=== PATIENT | male | born 1960 | race Caucasian/White ===

== ENCOUNTER 2018-11-20 18:57 | Emergency (ER) | payer MEDICAID, OTHER ==
[~2018-11-20] VITALS: Ht 172.7 cm; Wt 80.7 kg
[2018-11-20 19:09] VITALS: BP_SYST 130
--- NOTE | 2018-11-20 19:16 | NUR ---
Patient to ER bed 06 for evaluation. Side rails up. Report given to Shayan SPEARS.
--- NOTE | 2018-11-20 19:20 | NUR ---
Pt C/O of bleeding from the incision site on RT knee after meniscus surgery today. Pt noticed bleeding an hour ago and was advised to seek medical treatment if bleeding occurs. Pt wrapped site with JAH badage prior to arrival. Pt pain was 7/10 but after taking Percocet he is now pain free. Pt is ambulatory and denies any other symptoms at this time. Will continue to monitor.
--- NOTE | 2018-11-20 19:58 | NUR ---
Shayan Petersen at bedside examining patient.
--- NOTE | 2018-11-20 20:36 | NUR ---
Dr. Petersen at bedside discussing discharge instructions with patient
[2018-11-20 20:59] VITALS: BP_SYST 130
--- NOTE | 2018-11-20 21:00 | NUR ---
Patient given written and verbal discharge instructions and verbalizes understanding. ER MD discussed with patient the results and treatment provided. Patient in stable condition. ID arm band removed. Patient educated on pain management and to follow up with PMD. Pain Scale 0/10. Opportunity for questions provided and answered. Medication side effect fact sheet provided.
== END 2018-11-20 20:59 | disposition home or self-care (01) ==
LOC: SED 18:57
DX: M96.830 Postprocedural hemorrhage of a musculoskeletal structure following a musculoskeletal system procedure (principal); R03.0 Elevated blood-pressure reading, without diagnosis of hypertension
CPT/HCPCS: 99282